=== PATIENT | male | born 1965 | race Caucasian/White ===

== ENCOUNTER → 2016-08-25 | Day surgery (SDC) | payer OTHER ==
[~2016-08-25] MED LIST: NO MEDICATIONS; PERCOCET 5-3251 TAB PO
--- NOTE | ~2016-08-25 | OR ---
Unit #: [id number] #: [id number] Patient: MIR IVAN [id number] [address] [place], [place] [address] [id number] O MR#: [id number] NAME: MIR IVAN ROOM: Date of Procedure: 08/25/2016 Admission Date: 08/25/2016 Surgeon: Nash Hearn M.D. : 1965 Attending Physician: Nash Hearn M.D. Primary Care Physician: Virginia Mello M.D. OPERATIVE REPORT PREOPERATIVE DIAGNOSIS Colorectal cancer screening in an average-risk patient. PROCEDURES PERFORMED Colonoscopy and polypectomy. POSTOPERATIVE DIAGNOSES 1. A single sessile polyp in the cecal area. This was removed using snare polypectomy. It was about 5 mm in size. It was retrieved and sent for histology. 2. Mild sigmoid and descending colon diverticulosis. 3. Rest of the examination up to cecum and terminal ileum was normal. The quality of the prep was good. RECOMMENDATIONS 1. Follow up the results of polyp histology. 2. Consider repeat colonoscopy in 5 years. SEDATION USED MAC. DESCRIPTION OF PROCEDURE Following detailed explanation of potential risks and complications of a colonoscopy, namely perforation, bleeding, and complications related to sedation, the patient was brought to GI lab and laid in the left lateral decubitus position. A digital rectal examination was performed, which was normal. Lubricated tip of the Olympus video colonoscope was inserted through the anus and advanced under direct vision. The scope was advanced past rectosigmoid into descending colon. Scant small diverticula were seen scattered in this area. The scope tip was then navigated all the way up to cecum with visualization of the ileocecal valve and the appendiceal orifice. Preparation was excellent with good visualization and photodocumentation was obtained. Last few inches of terminal ileum were also visualized after intubation of the ileocecal valve and appeared normal. Successive segments of the colonic mucosa were examined upon withdrawal. A single sessile polyp was noted in the cecum. This was about 5 mm in size. It was removed using snare polypectomy. The polyp was retrieved and sent for histology. No additional polyps were noted. Other than the scant diverticula seen in the left side, no other abnormalities were found. The patient did not have any hemorrhoids at the anal verge. The scope was then withdrawn and the patient returned to the recovery area. He tolerated the procedure without any postprocedure Unit #: [id number] #: [id number] Patient: MIR IVAN complications. Dictated by... Evan Duarte/magdalena TD: 08/25/2016 13:20 JOB #: [id number] OPERATIVE REPORT Page 1 of 1 X Nash Hearn MD X PROCEDURE OPERATIVE NOTE
== END | disposition home or self-care (01) ==
LOC: COPS 11:24
DX: Z12.11 Encounter for screening for malignant neoplasm of colon (principal); D12.0 Benign neoplasm of cecum; K57.30 Diverticulosis of large intestine without perforation or abscess without bleeding; Z98.52 Vasectomy status; Z98.890 Other specified postprocedural states
CPT/HCPCS: 88305; J2250